=== PATIENT | male | born 1960 | race Caucasian/White ===

== ENCOUNTER 2017-11-27 07:32 | Day surgery (SDC) | payer BC ==
[2017-11-27] MEDS ORDERED: Propofol 200 MG/20 ML SDV IV ONE (07:33)
[2017-11-27] MEDS ORDERED: Midazolam 1 MG/ML 2 ML SDV IV ONE (07:33)
[2017-11-27] MEDS ORDERED: Lactated Ringers 1,000 ML IV SCH (07:45)
[2017-11-27] MEDS ORDERED: Sodium Chloride 0.9% 10 ML Syringe FLUSH PRN (07:45)
[2017-11-27] MEDS ORDERED: Simethicone Drops 40 MG/0.6 ML 30 ML Bottle ONE (09:26)
--- NOTE | 2017-11-27 09:47 | PREOP ---
ADMISSION DATE: 11/27/2017 CHIEF COMPLAINT: Need for screening colonoscopy. HISTORY OF PRESENT ILLNESS: This 57-year-old white male, has referred for screening colonoscopy. Has no complaints. Never had a scope. Has a negative family history. ALLERGIES: Has no known drug allergies. PAST MEDICAL HISTORY: Significant for emphysema, COPD, history of lung nodule, cataract. PAST SURGICAL HISTORY: Significant for nasal sinus procedure, panendoscopy, removal of lipoma from his back as well as pins and screws placed in his foot. SOCIAL HISTORY: The patient is single, has 3 children. Has 12 years of education. He is a former smoker. Does not use smokeless tobacco and has an occasional beer. REVIEW OF SYSTEMS: Essentially negative. He did have a cough as well as a history of visual disturbance, but cardiovascular, gastrointestinal, genitourinary are all negative. MEDICATIONS: Include the followin. Prednisolone acetate Ophthalmic solution. 2. Ciprofloxacin Ophthalmic solution. 3. Ketorolac Ophthalmic solution. PHYSICAL EXAMINATION: GENERAL: This is a well-developed, well-nourished white male, appearing in no acute distress. VITAL SIGNS: Reviewed. They are stable. Afebrile. HEENT: Grossly within normal limits. LUNGS: Clear to auscultation. HEART: Had a regular rate and rhythm. ABDOMEN: Soft, nontender. ASSESSMENT: A 57-year-old white male in need of screening colonoscopy. PLAN: C-scope. Procedure and risks explained to the patient to include bleeding, infection, perforation. The patient expresses understanding and he asked us to proceed. /[id number] /MODL
--- NOTE | 2017-11-27 10:01 | PCM.OPNOTE ---
- General Post-Op/Procedure Note Date of Surgery/Procedure: 11/27/17 Operative Procedure(s): c scope with bx Findings: descending colon polyp rectal polyp x3 Pre Op Diagnosis: colon cancer screening Post-Op Diagnosis: descending colon polyp. rectal polyp x3 Anesthesia Technique: MAC Primary Surgeon: Jens Flowers Anesthesia Provider: Naveen Dixon Pathology: descending colon polyp rectal polyp x3 Complications: None Condition: Good Free Text/Narrative:: see dictation
--- NOTE | 2017-11-27 10:19 | OR ---
DATE OF OPERATION: 11/27/2017 SURGEON: Jens Flowers MD PROCEDURE PERFORMED: Colonoscopy with hot loop snare and biopsy. PREOPERATIVE DIAGNOSIS: Need for screening C scope. POSTOPERATIVE DIAGNOSIS: Descending colon polyps and rectal polyps x3. INDICATIONS FOR PROCEDURE: This is a 57-year-old white male, who presents for a screening colonoscopy and this would be his 1st one. He was offered and accepted the same. DESCRIPTION OF PROCEDURE: After an excellent IV sedation was administered, digital rectal exam was performed. No marked abnormality was noted. Flexible colonoscope was inserted and advanced to the cecum without difficulty. The prep was excellent. The following findings were noted: Ascending colon, unremarkable. Transverse colon, unremarkable. Descending colon, approximately 50 cm pedunculated polyp biopsied with a hot loop snare and retrieved. Sigmoid unremarkable. Rectum, at approximately 10 cm, 3 pedunculated lesions, biopsied with a hot loop snare and sent for permanent. There was some remainder of some polypoid material at the base of 2 leads and these were grasped with a hot forceps and fulgurated as well, biopsied to ensure destruction of the tissue. The colon was deflated as the scope was removed. The patient tolerated the procedure well, and was taken to recovery room in good condition. /[id number] /MODL
== END 2017-11-27 10:53 | disposition home or self-care (01) ==
LOC: FB.SDS 07:32
PROVIDERS: ATTEND Surgery
DX: Z12.11 Encounter for screening for malignant neoplasm of colon (principal); D12.4 Benign neoplasm of descending colon; D12.8 Benign neoplasm of rectum; K62.1 Rectal polyp; K21.9 Gastro-esophageal reflux disease without esophagitis; J44.9 Chronic obstructive pulmonary disease, unspecified; Z79.899 Other long term (current) drug therapy; Z87.891 Personal history of nicotine dependence
CPT/HCPCS: 45384; 45385; 88305; A9270; J2250; J2704; J7120

== ENCOUNTER 2019-05-09 14:53 | Emergency (ER) | payer BC, OTHER ==
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
[2019-05-09] MEDS ORDERED: Sodium Chloride 0.9% 10 ML Syringe FLUSH PRN (16:37)
[2019-05-09] MEDS ORDERED: Lidocaine/EPINEPHrine/Tetracaine Soln 5 ML Each TOP ONE ×2 (16:45)
[2019-05-09] MEDS ORDERED: Sodium Chloride 0.9% 1,000 ML IV SCH (18:00)
[2019-05-09] MEDS ORDERED: Ondansetron 4 MG/2 ML SDV IVPUSH ONE (18:00)
== END 2019-05-09 18:10 ==
LOC: FB.ED 14:53
DX: S06.0X1A Concussion with loss of consciousness of 30 minutes or less, initial encounter (principal); S02.0XXA Fracture of vault of skull, initial encounter for closed fracture; S02.82XA Fracture of other specified skull and facial bones, left side, initial encounter for closed fracture; S02.81XA Fracture of other specified skull and facial bones, right side, initial encounter for closed fracture; S02.2XXA Fracture of nasal bones, initial encounter for closed fracture; S01.81XA Laceration without foreign body of other part of head, initial encounter; S40.812A Abrasion of left upper arm, initial encounter; G93.89 Other specified disorders of brain; J44.9 Chronic obstructive pulmonary disease, unspecified; V86.56XA Driver of dirt bike or motor/cross bike injured in nontraffic accident, initial encounter
CPT/HCPCS: 12015; 36415; 70450; 70486; 72125; 80053; 81001; 85025; 85610; 96374; 99285; A9270; J2405; J7030

== ENCOUNTER 2022-01-14 06:42 | Day surgery (SDC) | payer BC ==
[~2022-01-14 06:42] MED LIST: Lactated Ringers 1,000 ML IV PRN
[2022-01-14] MEDS ORDERED: fentaNYL 100 MCG/2 ML SDV IV ONE (06:43)
[2022-01-14] MEDS ORDERED: Midazolam 1 MG/ML 2 ML SDV IV ONE (06:43)
[2022-01-14] MEDS: Sodium Chloride 0.9% 10 ML Syringe FLUSH PRN (07:16)
[2022-01-14] MEDS: acetaZOLAMIDE 500 MG Cap.ER PO ONE (08:36)
== END 2022-01-14 09:06 | disposition home or self-care (01) ==
LOC: FB.SDS 06:42
PROVIDERS: ATTEND Ophthalmology
DX: H25.811 Combined forms of age-related cataract, right eye (principal); H02.881 Meibomian gland dysfunction right upper eyelid; H02.884 Meibomian gland dysfunction left upper eyelid; H43.812 Vitreous degeneration, left eye; Z96.1 Presence of intraocular lens; J43.9 Emphysema, unspecified; K21.9 Gastro-esophageal reflux disease without esophagitis; Z87.891 Personal history of nicotine dependence
CPT/HCPCS: 00142; 66984; A9270; J2250; J3010; J3490; V2632

== ENCOUNTER 2022-02-15 21:09 | Emergency (ER) | payer BC | END 2022-02-15 22:20 | disposition home or self-care (01) | LOC: FB.ED 21:09 | DX: S61.217A Laceration without foreign body of left little finger without damage to nail, initial encounter (principal); J44.9 Chronic obstructive pulmonary disease, unspecified; Z79.899 Other long term (current) drug therapy; W26.8XXA Contact with other sharp object(s), not elsewhere classified, initial encounter | CPT/HCPCS: 12001; 99281; 99282-25 ==

== ENCOUNTER 2022-10-03 06:55 | Day surgery (SDC) | payer BC ==
[2022-10-03] MEDS ORDERED: Midazolam 1 MG/ML 2 ML SDV IV ONE (06:56)
[2022-10-03] MEDS ORDERED: Propofol 200 MG/20 ML SDV IV ONE (06:56)
[2022-10-03] MEDS ORDERED: Sodium Chloride 0.9% 10 ML Syringe FLUSH PRN (07:00)
[2022-10-03] MEDS: Lactated Ringers 1,000 ML IV SCH (07:54)
[2022-10-03] MEDS: Simethicone Drops 40 MG/0.6 ML 30 ML Bottle PO ONE (08:27)
== END 2022-10-03 09:43 | disposition home or self-care (01) ==
LOC: FB.SDS 06:55
PROVIDERS: ATTEND Surgery
DX: Z12.11 Encounter for screening for malignant neoplasm of colon (principal); D12.6 Benign neoplasm of colon, unspecified; K21.9 Gastro-esophageal reflux disease without esophagitis; Z86.010 Personal history of colon polyps; Z79.899 Other long term (current) drug therapy; Z98.890 Other specified postprocedural states; Z87.891 Personal history of nicotine dependence
CPT/HCPCS: 00812-QZ; 88305; A9270-GY; J2250; J2704; J7120

== ENCOUNTER 2022-11-07 07:21 | Day surgery (SDC) | payer BC ==
[2022-11-07] MEDS ORDERED: Lactated Ringers 1,000 ML IV ONE (07:22)
[2022-11-07] MEDS ORDERED: DEXMEDETOMIDINE IV ONE (07:22)
[2022-11-07] MEDS ORDERED: SODIUM CHLORIDE 0.9% IV ONE (07:22)
[2022-11-07] MEDS ORDERED: Sodium Chloride 0.9% 10 ML Syringe FLUSH PRN (07:30)
[2022-11-07] MEDS ORDERED: ceFAZolin 2 GM in Sodium Chloride 0.9% 100 ML IV ONE (07:30)
[2022-11-07] MEDS ORDERED: Lactated Ringers 1,000 ML IV SCH (07:30)
[2022-11-07] MEDS ORDERED: ceFAZolin 2 GM Vial IVPUSH ONE (07:30)
[2022-11-07 08:48] LABS: ESTIMATED GFR 77 mL/min (>60)
[2022-11-07] MEDS ORDERED: Lidocaine 1% with EPINEPHrine 1:100,000 20 ML MDV NERVRT ONE (09:55)
[2022-11-07] MEDS ORDERED: Bupivacaine 0.5% 50 ML MDV NERVRT ONE (09:55)
[2022-11-07] MEDS ORDERED: Propofol 200 MG/20 ML SDV IV ONE (13:46)
[2022-11-07] MEDS ORDERED: Midazolam 1 MG/ML 2 ML SDV IV ONE (13:46)
[2022-11-07] MEDS ORDERED: Phenylephrine 0.5% Nasal Spray 15 ML Bot NAS ONE (13:46)
[2022-11-07] MEDS ORDERED: Ketamine 500 mg/10 ML MDV IV ONE (13:46)
[2022-11-07] MEDS ORDERED: fentaNYL 100 MCG/2 ML SDV IV ONE (13:46)
== END 2022-11-07 12:55 | disposition home or self-care (01) ==
LOC: FB.SDS 07:21
PROVIDERS: ATTEND Surgery
DX: M79.89 Other specified soft tissue disorders (principal); D17.1 Benign lipomatous neoplasm of skin and subcutaneous tissue of trunk; K21.9 Gastro-esophageal reflux disease without esophagitis; D12.6 Benign neoplasm of colon, unspecified; Z79.899 Other long term (current) drug therapy; Z87.891 Personal history of nicotine dependence
CPT/HCPCS: 00300; 36415; 71045; 80053; 84484; 85025; 85610; 85730; 88304; A9270-GY; J0690; J2250; J2704; J3010; J3490; J7120

== ENCOUNTER 2023-12-25 07:47 | Day surgery (SDC) | payer BC ==
[2023-12-25] MEDS ORDERED: Midazolam 1 MG/ML 2 ML SDV IV ONE (07:48)
[2023-12-25] MEDS ORDERED: Propofol 200 MG/20 ML SDV IV ONE (07:48)
[2023-12-25] MEDS ORDERED: Lidocaine 2% 100 MG/5 ML Syringe IVPUSH ONE (07:48)
[2023-12-25] MEDS ORDERED: Sodium Chloride 0.9% 10 ML Syringe FLUSH PRN (08:00)
[2023-12-25] MEDS: Lactated Ringers 1,000 ML IV SCH (08:30)
== END 2023-12-25 11:31 | disposition home or self-care (01) ==
LOC: FB.SDS 07:47
PROVIDERS: ATTEND Surgery
DX: K21.00 Gastro-esophageal reflux disease with esophagitis, without bleeding (principal); K31.89 Other diseases of stomach and duodenum; Z87.891 Personal history of nicotine dependence; Z79.899 Other long term (current) drug therapy
CPT/HCPCS: 00731; 88305; 88342; J2250; J2704; J7120